=== PATIENT | male | born 1960 ===

== ENCOUNTER 2021-09-04 07:33 | Emergency (ER) | payer MEDICAID, OTHER ==
[~2021-09-04] VITALS: Ht 170.2 cm; Wt 86.2 kg
[2021-09-04 09:24] VITALS: BP 154/96
== END 2021-09-04 09:32 | disposition home or self-care (01) ==
LOC: EDBD 07:33 → ER 07:33
DX: S29.011A Strain of muscle and tendon of front wall of thorax, initial encounter (principal); V49.49XA Driver injured in collision with other motor vehicles in traffic accident, initial encounter; Y93.89 Activity, other specified; Y92.488 Other paved roadways as the place of occurrence of the external cause; Y99.8 Other external cause status
CPT/HCPCS: 71046; 93005